=== PATIENT | female | born 1985 | race Caucasian/White ===

== ENCOUNTER 2016-12-31 05:26 | Day surgery (SDC) | payer OTHER, MEDICAID ==
[2016-12-29 15:42] LABS: BASOPHILS 0.5 % (0.0-2.0); EOSINOPHILS 3.2 % (0-7); HEMATOCRIT 38.2 % (36.0-48.0); HEMOGLOBIN 12.7 g/dL (12-16); IMMATURE GRANULOCYTES 0.2 % (0-5); LYMPHOCYTES 38.6 % (15-50); MCH 29.6 pg (26.0-34.0); MCHC 33.2 g/dL (31.0-37.0); MONOCYTES 10.2 % (2-11); NEUTROPHILS 47.3 % (40-80); PLATELET COUNT 172 10x3/uL (130-400); RBC 4.29 10x6/uL (4.00-5.40); RDW 13.2 % (11.5-14.5); WBC 4.4 10x3/uL (4.8-10.8)
[~2016-12-31] VITALS: Ht 160 cm; Wt 53.1 kg
[~2016-12-31 05:26] MED LIST: IBUPROFEN600 MG PO; PERCOCET 10/3251 TA1 PO; ULTRAM50 MG PO
[2016-12-31 07:38] VITALS: BP 110/75; Ht 160 cm; Wt 53.1 kg
--- NOTE | 2016-12-31 12:28 | NUR ---
DR SHIELDS TO ROOM GUIDE WITH LYSIS OF ADHESIONS. BRAY D/CHARLIE INTACT AT END OF CASE. CLEAR YELLOW URINE OUT.
--- NOTE | 2017-01-19 11:44 | OP ---
PATIENT NAME: WILLIAM CALDERA MEDICAL RECORD: [id number] LOCATION:D.OPS ADMISSION DATE: SURGEON: VIOLETA BOOTH MD DATE OF OPERATION: 12/31/2016 PREOPERATIVE DIAGNOSES: 1. A 4-cm left ovarian cyst. 2. Pelvic pain. POSTOPERATIVE DIAGNOSES: 1. Omental adhesions involving the anterior abdominal wall. 2. Multiple areas of endometriosis involving the pelvic peritoneum. 3. A 2-cm left hemorrhagic cyst. PROCEDURE: Laparoscopic lysis of adhesions and left ovarian cystotomy. SURGEON: Violeta Booth MD. ESTIMATED BLOOD LOSS: Minimal. INTRAVENOUS FLUIDS: Per anesthesia records. COMPLICATIONS: None apparent. PROCEDURE IN DETAIL: The patient was taken to the operating room where general anesthesia was achieved without difficulty. The patient was then prepped and draped in normal sterile fashion in the dorsal lithotomy position in the [facility]. A sponge stick was placed in the vagina for anatomical location of the bladder and the vagina intraoperatively. The bladder was drained of approximately 150 cc of clear yellow urine. At this point, attention was turned to the umbilicus where a 5-mm incision was made in the skin and a 5-mm bladeless trocar was then used to enter the abdomen with direct visualization using the laparoscope. The introducer was removed and intraperitoneal placement was directly confirmed. The opening pressure was found to be 5 mmHg. The patient was then insufflated and a dense band of adhesions was noted in the midline. A trocar was placed in the left lower quadrant. The thin nature of the patient allowed for transillumination of the abdominal wall vessels and a 5-mm incision was made in the skin and a 5-mm trocar was placed in the left lower quadrant under direct visualization of the laparoscope due to the denseness and the vascularity of the omental adhesions. Dr. Medina was called to evaluate and felt that it was reasonable to dissect at the level of the abdominal wall. The gyrus bipolar cautery was then used to cauterize and then cut these adhesions across the anterior abdominal wall with good hemostasis noted. Dr. Medina was present to evaluate for any bowel injuries or problems. Following removal of the adhesion bands, Dr. Medina felt that it was not properly and left the case. Attention was then turned to the left ovary, which was found to be free and mobile. A 4 cm cyst which had been seen approximately 3 weeks prior was no longer present; however, there was a 2 cm ovulatory cyst. This was then drained with the bipolar cautery hook with a small amount of serous fluid removed. Good hemostasis was noted from the site. The right ovary was found to be normal in appearance. The pelvis was thoroughly irrigated. The camera and instruments were then removed. The patient was then desufflated, the ports removed and the skin repaired with 3-0 Vicryl in an interrupted fashion. A Romano catheter was placed intraoperatively, this was removed upon end of the case and sponge stick was removed. The patient tolerated the procedure well, was transferred to OPERATIVE REPORT [id number] WILLIAM CALDERA postanesthesia recovery stable without incident. TRANSINT:[id number] Voice Confirmation ID: [id number] DOCUMENT ID: [id number] VIOLETA BOOTH MD at 1142 CC: [id number] DICTATION DATE: 12/31/16 1248 [employer] WORKER: 12/31/16 1427 [id number] [place] [address]
== END 2016-12-31 14:50 | disposition home or self-care (01) ==
LOC: D.OPS 05:26 → D.PAN 10:00 → D.OPS 10:00
PROVIDERS: Obstetrics & Gynecology
DX: N83.202 Unspecified ovarian cyst, left side (principal); N80.3 Endometriosis of pelvic peritoneum; Z79.1 Long term (current) use of non-steroidal anti-inflammatories (NSAID); Z79.899 Other long term (current) drug therapy; Z87.891 Personal history of nicotine dependence